=== PATIENT | female | born 1955 | race Caucasian/White ===

== ENCOUNTER 2020-07-21 16:37 | Inpatient (IN) ==
[2020-07-21] MEDS ORDERED: NITROGLYCERIN SL 0.4 MG TABLET SL STA (16:56)
[2020-07-21] MEDS ORDERED: ASPIRIN CHEW 81 MG TABLET PO STA (16:56)
[2020-07-21 17:27] LABS: Basophils # 0.1 10*3/uL (0.0-0.2); Basophils % 0.6 % (0.0-0.8); Eosinophils # 0.1 10*3/uL (0.0-0.87); Eosinophils % 0.4 % (0.00-10.9); Hematocrit 44.7 VOL% (35.7-47.0); Hemoglobin 14.7 GM/DL (12.0-16.0); Immature Granulocytes % 0.7 %; Immature Granulocytes Absolute 0.09 #; Lymphocytes # 1.5 10*3/uL (1.4-4.0); Lymphocytes % 11.8 % (21.3-54.2); Mean Corpuscular HGB Conc 32.9 GM/DL (32-36); Mean Corpuscular Volume 92.4 FL (87-102); Mean Platelet Volume 10.3 FL (9.6-12.0); Monocytes % 6.2 % (1.7-12.7); Neutrophils % 80.3 % (38.7-73.9); Platelet Count 340 T/CUMM (130-400); Red Blood Count 4.84 MC/CUMM (3.8-5.5); Red Cell Distribution Width 13.2 % (9.3-17.3); White Blood Count 12.5 T/CUMM (4-12)
[2020-07-21 17:57] LABS: Albumin 3.6 G/DL (3.4-5.0); Bilirubin,Total 0.7 MG/DL (0.2-1.0); Calcium 9.6 MG/DL (8.5-10.1); Osmolality,Calculated 281.5 MOS/KG (273-304); Total Protein 7.8 G/DL (6.4-8.3); Uric Acid 3.9 MG/DL (2.6-6.0)
[2020-07-21] MEDS ORDERED: LACTATED RINGERS 1,000 ML IV ONE (18:08)
[2020-07-21] MEDS ORDERED: ONDANSETRON 4 MG/2 ML VIAL IV ONE (18:11)
[2020-07-21] MEDS ORDERED: MORPHINE 4 MG/1 ML VIAL IV STA (18:11)
[2020-07-21] MEDS ORDERED: GLUCAGON 1 MG VIAL IM PRN (18:37)
[2020-07-21] MEDS ORDERED: DEXTROSE 50% 25 GM/50 ML VIAL IV PRN (18:37)
[2020-07-21] MEDS: busPIRone 15 MG TABLET PO SCH (21:38)
[2020-07-21] MEDS: PYRIDOSTIGMINE 60 MG TABLET PO SCH (21:38)
[2020-07-21] MEDS: MIRTAZAPINE 15 MG TABLET PO SCH (21:38)
[2020-07-21] MEDS: ENOXAPARIN 40 MG/0.4 ML SYRINGE SUBCUT SCH (21:38)
[2020-07-21] MEDS: predniSONE 5 MG TABLET PO SCH (21:38)
[2020-07-21] MEDS: DULoxetine 30 MG CAPSULE PO SCH (21:38)
[2020-07-21] MEDS: MORPHINE 4 MG/1 ML VIAL IV PRN (21:39)
[2020-07-21] MEDS: Asenapine Maleate [Saphris] 5 mg tablet, sublingual SL SCH ×2 (21:39→23:19)
[2020-07-21] MEDS: SODIUM CHLORIDE 0.9% 1,000 ML IV SCH (21:52)
[2020-07-22] MEDS: INSULIN LISPRO 100 UNIT/ML SUBCUT SCH ×4 (00:25→17:58)
[2020-07-22] MEDS: SODIUM CHLORIDE 0.9% 1,000 ML IV SCH ×6 (00:26→21:01)
[2020-07-22] MEDS: MORPHINE 4 MG/1 ML VIAL IV PRN ×4 (05:37→21:34)
[2020-07-22] MEDS: LEVOTHYROXINE 50 MCG TABLET PO SCH (06:03)
[2020-07-22 06:39] LABS: Basophils # 0.1 10*3/uL (0.0-0.2); Basophils % 0.6 % (0.0-0.8); Eosinophils # 0.1 10*3/uL (0.0-0.87); Eosinophils % 0.4 % (0.00-10.9); Hematocrit 41.5 VOL% (35.7-47.0); Hemoglobin 13.2 GM/DL (12.0-16.0); Immature Granulocytes % 0.4 %; Immature Granulocytes Absolute 0.05 #; Lymphocytes % 17.4 % (21.3-54.2); Mean Corpuscular HGB Conc 31.8 GM/DL (32-36); Mean Corpuscular Volume 95.2 FL (87-102); Mean Platelet Volume 11.2 FL (9.6-12.0); Monocytes % 4.9 % (1.7-12.7); Neutrophils % 76.3 % (38.7-73.9); Platelet Count 312 T/CUMM (130-400); Red Blood Count 4.36 MC/CUMM (3.8-5.5); Red Cell Distribution Width 13.3 % (9.3-17.3); White Blood Count 11.4 T/CUMM (4-12)
[2020-07-22] MEDS ORDERED: LEVOTHYROXINE 100 MCG VIAL IV SCH (07:00)
[2020-07-22 07:07] LABS: Albumin 3.1 G/DL (3.4-5.0); Bilirubin,Total 1.1 MG/DL (0.2-1.0); Calcium 8.8 MG/DL (8.5-10.1); Osmolality,Calculated 283.3 MOS/KG (273-304); Risk Ratio 2.58; Thyroid Stimulating Hormone 0.347 uIU/ml (0.358-3.74); Total Protein 7.2 G/DL (6.4-8.3); VLDL CHOLESTEROL 8.4 MG/DL
[2020-07-22] MEDS: DULoxetine 30 MG CAPSULE PO SCH ×2 (09:42→21:04)
[2020-07-22] MEDS: PYRIDOSTIGMINE 60 MG TABLET PO SCH ×3 (09:42→21:04)
[2020-07-22] MEDS: predniSONE 5 MG TABLET PO SCH ×2 (09:42→21:04)
[2020-07-22] MEDS: TOPIRAMATE 25 MG TABLET PO SCH (09:42)
[2020-07-22] MEDS: busPIRone 15 MG TABLET PO SCH ×3 (09:42→21:03)
[2020-07-22] MEDS: ASPIRIN EC 325 MG TABLET PO SCH (09:42)
[2020-07-22] MEDS: Asenapine Maleate [Saphris] 5 mg tablet, sublingual SL SCH ×2 (09:50→21:02)
[2020-07-22] MEDS: MIRTAZAPINE 15 MG TABLET PO SCH (21:04)
[2020-07-22] MEDS: ENOXAPARIN 40 MG/0.4 ML SYRINGE SUBCUT SCH (21:07)
[2020-07-23] MEDS: INSULIN LISPRO 100 UNIT/ML SUBCUT SCH ×4 (01:20→18:02)
[2020-07-23] MEDS: SODIUM CHLORIDE 0.9% 1,000 ML IV SCH ×5 (01:21→20:37)
[2020-07-23] MEDS: MORPHINE 4 MG/1 ML VIAL IV PRN ×3 (04:21→20:37)
[2020-07-23] MEDS: LEVOTHYROXINE 50 MCG TABLET PO SCH (06:28)
[2020-07-23 06:47] LABS: Basophils # 0.1 10*3/uL (0.0-0.2); Eosinophils # 0.2 10*3/uL (0.0-0.87); Hematocrit 40.1 VOL% (35.7-47.0); Hemoglobin 12.9 GM/DL (12.0-16.0); Immature Granulocytes % 0.5 %; Immature Granulocytes Absolute 0.04 #; Lymphocytes # 2.3 10*3/uL (1.4-4.0); Lymphocytes % 25.8 % (21.3-54.2); Mean Corpuscular HGB Conc 32.2 GM/DL (32-36); Mean Corpuscular Volume 93.5 FL (87-102); Mean Platelet Volume 11.7 FL (9.6-12.0); Monocytes % 6.6 % (1.7-12.7); Neutrophils % 64.1 % (38.7-73.9); Platelet Count 234 T/CUMM (130-400); Red Blood Count 4.29 MC/CUMM (3.8-5.5); Red Cell Distribution Width 13.5 % (9.3-17.3); White Blood Count 8.8 T/CUMM (4-12)
[2020-07-23 07:17] LABS: Albumin 2.9 G/DL (3.4-5.0); Calcium 8.9 MG/DL (8.5-10.1); Osmolality,Calculated 284.8 MOS/KG (273-304); Total Protein 6.9 G/DL (6.4-8.3)
[2020-07-23] MEDS: DULoxetine 30 MG CAPSULE PO SCH ×2 (09:55→20:38)
[2020-07-23] MEDS: Asenapine Maleate [Saphris] 5 mg tablet, sublingual SL SCH ×2 (09:55→20:39)
[2020-07-23] MEDS: PYRIDOSTIGMINE 60 MG TABLET PO SCH ×3 (09:55→20:38)
[2020-07-23] MEDS: busPIRone 15 MG TABLET PO SCH ×3 (09:55→20:38)
[2020-07-23] MEDS: predniSONE 5 MG TABLET PO SCH ×2 (09:56→20:38)
[2020-07-23] MEDS: ASPIRIN EC 325 MG TABLET PO SCH (09:56)
[2020-07-23] MEDS: TOPIRAMATE 25 MG TABLET PO SCH (09:57)
[2020-07-23] MEDS: DIVALPROEX ER 500 MG TABLET PO SCH (18:01)
[2020-07-23] MEDS: MIRTAZAPINE 15 MG TABLET PO SCH (20:38)
[2020-07-23] MEDS: ENOXAPARIN 40 MG/0.4 ML SYRINGE SUBCUT SCH (20:38)
[2020-07-24] MEDS: INSULIN LISPRO 100 UNIT/ML SUBCUT SCH ×5 (00:01→23:30)
[2020-07-24] MEDS: LEVOTHYROXINE 50 MCG TABLET PO SCH (06:07)
[2020-07-24] MEDS: SODIUM CHLORIDE 0.9% 1,000 ML IV SCH ×5 (07:20→21:08)
[2020-07-24] MEDS: Asenapine Maleate [Saphris] 5 mg tablet, sublingual SL SCH ×2 (08:40→20:59)
[2020-07-24] MEDS: TOPIRAMATE 25 MG TABLET PO SCH (08:41)
[2020-07-24] MEDS: PYRIDOSTIGMINE 60 MG TABLET PO SCH ×3 (08:42→20:59)
[2020-07-24] MEDS: ASPIRIN EC 325 MG TABLET PO SCH (08:42)
[2020-07-24] MEDS: busPIRone 15 MG TABLET PO SCH ×3 (08:42→20:59)
[2020-07-24] MEDS: DIVALPROEX ER 500 MG TABLET PO SCH (08:42)
[2020-07-24] MEDS: DULoxetine 30 MG CAPSULE PO SCH ×2 (08:42→20:58)
[2020-07-24] MEDS: predniSONE 5 MG TABLET PO SCH ×2 (08:42→20:58)
[2020-07-24 09:09] LABS: Bilirubin,Direct 0.17 MG/DL (0.0-0.20); Bilirubin,Indirect 0.2 MG/DL (0.0-1.0); Bilirubin,Total 0.4 MG/DL (0.2-1.0); Total Protein 6.9 G/DL (6.4-8.3)
[2020-07-24] MEDS: MORPHINE 4 MG/1 ML VIAL IV PRN ×2 (13:32→21:06)
[2020-07-24] MEDS ORDERED: ONDANSETRON 4 MG/2 ML VIAL IV PRN (13:33)
[2020-07-24] MEDS: ENOXAPARIN 40 MG/0.4 ML SYRINGE SUBCUT SCH (20:58)
[2020-07-24] MEDS: MIRTAZAPINE 15 MG TABLET PO SCH (20:59)
[2020-07-25] MEDS: MORPHINE 4 MG/1 ML VIAL IV PRN (04:31)
[2020-07-25] MEDS: LEVOTHYROXINE 50 MCG TABLET PO SCH (06:17)
[2020-07-25] MEDS: SODIUM CHLORIDE 0.9% 1,000 ML IV SCH ×2 (06:18→09:22)
[2020-07-25] MEDS: INSULIN LISPRO 100 UNIT/ML SUBCUT SCH ×2 (06:18→12:29)
[2020-07-25] MEDS: PYRIDOSTIGMINE 60 MG TABLET PO SCH (09:23)
[2020-07-25] MEDS: TOPIRAMATE 25 MG TABLET PO SCH (09:23)
[2020-07-25] MEDS: Asenapine Maleate [Saphris] 5 mg tablet, sublingual SL SCH (09:23)
[2020-07-25] MEDS: busPIRone 15 MG TABLET PO SCH (09:23)
[2020-07-25] MEDS: DULoxetine 30 MG CAPSULE PO SCH (09:23)
[2020-07-25] MEDS: predniSONE 5 MG TABLET PO SCH (09:23)
[2020-07-25] MEDS: DIVALPROEX ER 500 MG TABLET PO SCH (09:23)
[2020-07-25] MEDS: ASPIRIN EC 325 MG TABLET PO SCH (09:23)
[2020-07-25 11:29] VITALS: BP 120/46
== END 2020-07-25 13:40 | disposition home or self-care (01) | DRG 440 ==
LOC: EDUNIT# → EDBD → N.ED 16:37 → N.EDINP 18:37 → SUATTDRO 18:37 → N.3E 20:43
PROVIDERS: ADMIT Internal Medicine; ATTEND Internal Medicine Geriatric Medicine